=== PATIENT | male | born 1945 | race Caucasian/White ===

== ENCOUNTER 2024-09-25 09:52 | Outpatient (CLI) | payer MEDICARE, BC ==
--- NOTE | 2024-09-25 13:17 | RADIOLOGY REPORT ---
PROCEDURE: MR MRI LUMBAR SPINE Indication: WEDGE COMPRESSION FRACTURE OF SECOND LUMBAR VERTEB COMPARISON: None TECHNIQUE: Multiplanar multisequence images of the the lumbar spine are obtained. FINDINGS: 5 lumbar vertebral body types counting from the lumbosacral junction. There is a acute to subacute compression fracture of them L2 vertebral body with 80% loss vertebral b arik height, depression of the superior and inferior endplates, 2 mm retropulsion. The fracture extend s to the bilateral L2 pedicles. There is surrounding soft tissue edematous changes pick There is also decreased T1 signal within the anteroinferior aspect of the L1 vertebral body with glenn esponding edema likely representing nondepressed fracture. Moderate multilevel disc space narrowing. Conus terminates at the L1-2 disc space level. 8 mm L1 vert ebral body hemangioma. L1-2: 3 mm disc osteophyte complex. Moderate facet and flavum hypertrophy. Thecal sac measures 10 m m AP. No spinal canal stenosis. Moderate bilateral neural foraminal stenosis. L2-3: 3 mm disc protrusion. Mild facet and flavum hypertrophy. Thecal sac measures 10 mm AP. No spi nal canal stenosis. [id number] bilateral neural foraminal stenosis. L3-4: 2 mm disc protrusion. Moderate facet and flavum hypertrophy. No spinal canal stenosis. Mild b ilateral neural foraminal stenosis. L4-5: 2 mm disc protrusion. [id number]-jazxnlxq facet and flavum hypertrophy. No spinal canal stenosis. [id number]-[id number] bilateral neural foraminal stenosis. L5-S1: Small disc protrusion. Mild facet and flavum hypertrophy. No spinal canal stenosis. Mild to moderate bilateral neural foraminal stenosis. IMPRESSION: 1. Acute to subacute L2 vertebral body wedge-shaped/compression fracture involving the superior and i nferior endplates, 80% loss height and 3 mm retropulsion and extending to the bilateral L2 pedicles. No significant spinal canal stenosis. There is however moderate bilateral neural foraminal stenosis a t L1-2. Recommend neurosurgical consultation for further management. 2. Acute to subacute nondepressed fracture involving the anteroinferior aspect of the L1 vertebral declan dy. 3. Gmwj-uh-nsiuddls multilevel neural foraminal stenosis as described.
== END 2024-09-25 23:59 | disposition home or self-care (01) ==
LOC: MRI02 09:52
PROVIDERS: ATTEND Anesthesiology Pain Medicine
DX: S32.010A Wedge compression fracture of first lumbar vertebra, initial encounter for closed fracture (principal); V89.2XXA Person injured in unspecified motor-vehicle accident, traffic, initial encounter; M47.27 Other spondylosis with radiculopathy, lumbosacral region; S32.020A Wedge compression fracture of second lumbar vertebra, initial encounter for closed fracture; M51.27 Other intervertebral disc displacement, lumbosacral region; M80.08XA Age-related osteoporosis with current pathological fracture, vertebra(e), initial encounter for fracture; X58.XXXA Exposure to other specified factors, initial encounter; M48.07 Spinal stenosis, lumbosacral region; Y93.89 Activity, other specified; Y92.89 Other specified places as the place of occurrence of the external cause; Y99.8 Other external cause status
CPT/HCPCS: 72148